=== PATIENT | male | born 1965 | race Caucasian/White ===

== ENCOUNTER 2018-06-16 11:06 | Emergency (ER) | payer OTHER, SELFPAY ==
[2018-06-16 11:06] VITALS: BP 150/76; PULSE 86; RESP 18; TEMP 36.6; O2SAT 100; BMI 39.5
--- NOTE | 2018-06-16 11:23 | RAD_ITS ---
STUDY: X-RAY - LEFT KNEE REASON FOR EXAM: Male, 53 years old. Medial and posterior pain for 8 months. No known injury. TECHNIQUE: 3 view(s) of the knee. COMPARISON: None. Minimal joint margin osteophytic lipping of the medial compartment, none seen in the lateral compartment or the patellofemoral compartment. Osseous structures are intact, normally mineralized. There is no evidence of effusion. Periarticular soft tissues are unremarkable. RAD/Knee 3 Views IMPRESSION: Mild DJD of the medial compartment. Electronically Signed: Cameron Matthews, at 11:57 EDT Tel , Service support ,
--- NOTE | 2018-06-16 11:23 | VDLE_ITS ---
Reason For Study: LLE PAIN RIGHT LEFT CFV is compressible, spontaneous, phasic, GSV is normal. competent and demonstrates normal CFV is compressible, spontaneous, phasic, augmentation. competent, and demonstrates normal Procedure augmentation. Exam performed portable in ED. FV is compressible, spontaneous, phasic, The exam was diagnostic. competent and demonstrates normal A preliminary report was called and/or faxed augmentation. to Dr. Joseph & ED. POP V is compressible, spontaneous, phasic, competent and demonstrates normal augmentation. T/P Trunk is compressible. PTV is compressible. LT PerV is compressible. Interpretation Summary There is no evidence of left lower extremity deep vein thrombosis. Left greater saphenous vein appears patent and compressible segmentally. Normal flow patterns right common femoral vein. Ordering Physician: Michelle Joseph Referring Physician: Jose Rios Performed By: Torri Alexander, JOHN, RVT
[2018-06-16 12:21] LABS: Absolute Lymphocyte Count 1.73 X10^3/ul (0.83-4.51); Absolute Neutrophil Count 4.5 X10^3/uL (2.0-7.7); Basophil# 0.02 X10^3/uL; Basophil% 0.3 % (0-1); Eosinophil# 0.21 X10^3/uL; Hematocrit 41.7 % (40-54); Hemoglobin 14.5 g/dl (13.0-16.5); Lymphocyte # 1.73 X10^3/ul (4.0); Lymphocyte % 24.6 % (19-41); Mean Corp Hgb Conc 34.8 g/gl (32-36); Mean Corpuscular Hgb 29.6 pg (27.0-32.0); Mean Corpuscular Volume 85.1 fL (80-94); Mean Platelet Vol. 9.1 fl (6.2-12.0); Monocyte# 0.53 X10^3/uL; Monocyte% 7.5 % (0-10); Neutrophil # 4.53 X10^3/uL (2.7-7.7); Neutrophil % 64.3 % (47-70); Platelet Count 384 K/mm3 (150-450); RBC Distribution Width CV 12.8 % (11.6-14.6); RBC Distribution Width SD 38.9 fl (35.1-43.9)
[2018-06-16 12:23] LABS: Anion Gap 9 (5-15); BUN 15 mg/dL (7-18); BUN/Creat Ratio 19.8 RATIO (10-20); Calcium,Total 8.8 mg/dL (8.5-10.1); Chloride 103 mmol/L (98-107); Creatinine, Serum 0.76 mg/dL (0.70-1.30); EST Glomerular Filtration Rate 115 mL/min (>60); Est Glom Filt Rate - Afr Amer 139 mL/min (>60); Estimated Creatinine Clearance 139.59 ml/min; Glucose 92 mg/dL (74-106); Potassium 4.1 mmol/L (3.5-5.1); Sodium Level 137 mmol/L (136-145)
[2018-06-16 12:31] LABS: POSITIVE COUNT NO; POSITIVE DIFFERENTIAL NO; POSITIVE MORPHOLOGY NO
--- NOTE | 2018-06-16 12:47 | ED.VISSUMM ---
- ER Visit Summary Date of Service: 06/16/18 Chief Complaint: [Left knee pain] History of Present Illness: The patient is a 53 M [presents the emergency department complaint left knee pain that started 6 or 7 months ago initially. Patient states that he initially started with some discomfort in the right side of his back and he then developed pain in his left knee. Patient states the left legs have been numb for months. Patient yesterday was at a truck stop walking when he developed sudden onset of severe pain in his left knee and he felt a pop. Patient threw up 3 or 4 times due to the pain. Patient having a hard time weightbearing now secondary the pain. He denies any change in bowel or bladder function. Patient states that he has had some intermittent paresthesias in his hands and his feet for years. Patient's states that he really does not go to the doctor very often. Patient does not believe that he is diabetic.] Physical Examination: [HEENT-PERRLA, EOMI. Cranial nerves II through XII grossly intact. TMs clear. Mucous membranes moist. No adenopathy. Cardiovascular-regular rate and rhythm without murmur or ectopy Lungs-clear to auscultation, chest wall stable without crepitus or subcu emphysema Abdomen-normoactive bowel sounds, soft, nontender, no rebound or rigidity, no peritoneal signs. Extremities-intact ?4, normal range of motion, normal pulses, atraumatic]. Left knee-patient has some tenderness to palpation over the medial joint line. Patient has tenderness over left calf. No significant edema noted. He has had a small left knee effusion noted. No erythema or warmth noted patient has some pain with range of motion flexion extension of the knee. Immensely stable. Patient has normal pulses. Test Results: [Venous duplex of the left lower extremity was negative for DVT. X-ray of the left knee showed mild degenerative joint disease of the medial compartment. CBC with differential is normal and chemistries were normal with a normal glucose of 92.] Emergency Department Course and Treatment: [Patient will be given crutches and knee immobilizer] Treatment Plan: [Patient will be given referral to orthopedics on-call and a prescription for [place] for pain] Disposition: [Discharged home in stable condition] Impression: [Left knee sprain-possible internal derangement] This note was generated with [employer] dictation software. It may contain incorrect words, spelling, and punctuation that were not noted in review of the chart prior to signing ED Disposition - Plan for ED Patient: Chief Complaint: Lower Extremity Injury Referrals: Jose Rios [Primary Care Provider] -
--- NOTE | 2018-06-16 12:49 | ED.DEP ---
ED Disposition - Plan for ED Patient: Chief Complaint: Lower Extremity Injury Instructions: ED Sprain Knee, ED Meniscal Injury Knee Poss Prescriptions: Hydrocodone/Acetaminophen [[place] 5-325 Tablet] 1 ea PO 4X/DAY PRN PRN 5 Days #20 tab PRN Reason: Pain Referrals: Jose Rios [Primary Care Provider] - Lydia England DO [STAFF PHYSICIAN] - 3-5 Days
--- NOTE | 2018-06-16 12:51 | DCINST.ED_ITS ---
ED Disposition - Plan for ED Patient: Chief Complaint: Lower Extremity Injury Instructions: ED Sprain Knee, ED Meniscal Injury Knee Poss Prescriptions: Hydrocodone/Acetaminophen [[place] 5-325 Tablet] 1 ea PO 4X/DAY PRN PRN 5 Days # 20 tab PRN Reason: Pain Referrals: Jose Rios [Primary Care Provider] - Lydia England DO [STAFF PHYSICIAN] - 3-5 Days
== END 2018-06-16 13:24 | disposition home or self-care (01) ==
PROVIDERS: Emergency Provider Emergency Medicine; Family Provider Family Medicine; PCP Family Medicine
DX: M25.562 Pain in left knee (principal); S83.92XA Sprain of unspecified site of left knee, initial encounter; X50.9XXA Other and unspecified overexertion or strenuous movements or postures, initial encounter; Y93.01 Activity, walking, marching and hiking; Y92.812 Truck as the place of occurrence of the external cause; Y99.9 Unspecified external cause status; Z72.0 Tobacco use; M17.12 Unilateral primary osteoarthritis, left knee
CPT/HCPCS: 73562; 80048; 85025; 93971; 99285; A4216